=== PATIENT | female | born 1945 | race Caucasian/White ===

== ENCOUNTER 2021-05-02 12:08 | Day surgery (SDC) | payer MEDICARE, SELFPAY ==
--- NOTE | 2021-05-01 18:53 | PM.PREOP ---
Pre-operative Note COVID-19 COVID-19 status: Negative Interval Note History & Physical reviewed/Exam performed by Physician: Yes Changes to H&P: No
--- NOTE | 2021-05-01 18:54 | P.OP_ITS ---
Operative Date/Time/Diagnoses Date of procedure: 05/02/21 Time of procedure: 12:45 Procedure & Clinicians Procedure: Preoperative diagnoses: 1. Right nuclear sclerotic and cortical cataract. 2. Anisometropia 3. Previous left combined cataract and retinal surgery. 4. Epiretinal membrane 5. Dry eye syndrome 6. Hypertension Postoperative diagnoses: 1. Cataract removed by phacoemulsification with placement of posterior chamber intraocular lens. Procedure: Phacoemulsification with posterior chamber intraocular lens implant Surgeon: Slime Nguyen MD Complications: None Specimen: None Implant: DIBOO+23.5 Blood loss: None Anesthesia: Retrobulbar with monitored standby Description of procedure: Patient presents with a complaint of decreased vision due to cataract which is affecting activities of daily living for driving. The patient wants surgery to improve vision. She has anisometropia following her previous left cataract and retinal surgery and desires a distance target. The patient was taken to the operating room and given IV sedation. A retrobulbar block consisting of 6 cc of 2% xylocaine without epinephrine mixed half and half with 0.5% Marcaine with 1 cc of hyaluronidase added is placed between the medial and lateral 1/3 of the inferior orbital rim. The eye is manually massaged for 30 sec, prepped using Betadine solution, and draped in the usual sterile fashion. Temporal approach was made, a 1 mm side-port incision was made 90? from the proposed clear corneal incision position. Phenylephrine 1.5% mixed with 1% xylocaine 0.2 cc was placed into the anterior chamber. Endocoat followed by Healon was then placed. A 2.6 mm clear incision with a 2.6 mm blade was placed. A 360 degree capsulorrhexis style capsulotomy was then performed with a cystitome needle on a Healon. Hydrodelineation and hydrodissection were per formed. The phacoemulsification unit is introduced, and sculpting notice used to groove the central lens. It is then removed in chopping mode. Epi nucleus is removed with epinuclear mode and irrigation aspiration was used to remove the peripheral cortex. The posterior capsule is polished. The intraocular lens is selected, inspected, power confirmed, and placed in the posterior chamber. The wound was stromally hydrated and tested for leaks, there was none and it was left sutureless. Vigamox 0.1 cc was placed into the anterior chamber. Kenalog 0.2 cc was placed in the superior subconjunctival space. A drop of antibiotic and was placed and the eye was patched and shielded. The patient was stable and returned to the recovery room in excellent condition. Dictated by: Slime Nguyen MD Copy to: [facility] Same procedure as scheduled: Yes
[2021-05-02] MEDS: PROPARACAINE 0.5% OPHTH SOL 2 DROPS EYE-OP (12:23)
[2021-05-02] MEDS: CATARACT EYE COMPOUND (10 DROPS/SYRINGE) 3 DROPS EYE-OP (12:24)
[2021-05-02 12:35] VITALS: BP 152/76; PULSE 50; RESP 14; TEMP 36.9; O2SAT 98; BMI 30.1
--- NOTE | 2021-05-02 13:24 | SUR.OPER ---
Supine on eye stretcher, head on extension cradle secured with tape. Arms tucked at sides with blanket. Pillow under knees.
[2021-05-02] MEDS: HYALURONATE SODIUM 30 MG-10 MG/ML SYRINGES 1 BOX INTRAOCULA (14:19)
[2021-05-02] MEDS: MOXIFLOXACIN INJ 4 MG/0.8 ML VIAL 0.5 MG EYE-OP (14:19)
[2021-05-02] MEDS: ERYTHROMYCIN OPHTH 1 GM OINT 1 APPLIC EYE-RIGHT (14:19)
[2021-05-02] MEDS: PHENYLEPHRINE/LIDOCAINE VIAL (OR) 0.2 ML EYE-OP (14:20)
[2021-05-02] MEDS: TRIAMCINOLONE 50 MG/5 ML VIAL INJ (14:20)
[2021-05-02] MEDS: LIDOCAINE 2% 4 ML, BUPIVACAINE 0.5% (PF) 4 ML, HYALURONIDASE 150 UNIT INJ (14:21)
[2021-05-02] MEDS: BALANCED SALT IRRIG SOLN NO.2 500 ML, EPINEPHrine 1 MG IRR (14:21)
[2021-05-02 14:43] VITALS: BP 158/64; PULSE 47; RESP 12; TEMP 36.3; O2SAT 100
== END 2021-05-02 15:06 | disposition home or self-care (01) ==
LOC: OR 12:11
PROVIDERS: Family Provider Family Medicine; PCP Family Medicine; Referring Provider Ophthalmology; Visit Provider Ophthalmology
PROC: (CPT 66984; principal; 2021-05-02 13:15)
DX: H25.811 Combined forms of age-related cataract, right eye (principal); H52.31 Anisometropia; H04.129 Dry eye syndrome of unspecified lacrimal gland; I10 Essential (primary) hypertension
CPT/HCPCS: 66984; J0171; J2704; J3301; J3470

== ENCOUNTER → 2022-10-22 12:55 | Outpatient (CLI) | payer MEDICARE, SELFPAY ==
--- NOTE | 2022-10-22 | DI.NM.S_ITS ---
PROCEDURE: NM EXERCISE TREADMILL NON NUC COMPARISON: None. INDICATIONS: Bradycardia, unspecified Cardiac murmur FINDINGS: The patient exercised for 6 minutes and 6 seconds reaching 82% of maximum predicted heart rate. Double product 25360, suggesting adequate stress test. Above average exercise tolerance (7.0METs, ZAIN -14%). Resting ECG shows non-specific ST-T changes. With exercise, there were mild horizontal ST depressions in the inferior and anterolateral leads. No angina during the study. No ectopy. IMPRESSION: Abnormal study due to mild horizontal ST depressions in the inferior and anterolateral leads during recovery. No angina during the study. Above average exercise tolerance (ZAIN -14%). Recommend exercise stress echo for further evaluation of the ST changes. Dictated by: Mayuri Johnston MD on 10/23/2022 at 13:22 Approved by: Mayuri Johnston MD on 10/23/2022 at 13:25
--- NOTE | 2022-10-22 | DI.ECHO.S_ITS ---
[facility] +---------+ : : [address] : : : : [id number] : : : : Phone: [phone]---------+ Echocardiogram Report + + :Name: MARCO MOSES Study Date: 10/22/2022 Height: 69.5 in: :[facility] ReadingLocation: Weight: 214 lb : : Gender: Female BSA: 2.1 m2 : :: 1945 Age: 76 yrs BP: 172/80 mmHg: :Reason For Study: BRADYCARDIA, CARDIAC MURMUR : :Ordering Physician: TIANA, : :MARGARITA Akbar D.O. Performed By: Mame Gross : :Referring: MARGARITA PEREZ + + Interpretation Summary The ejection fraction is estimated to be 60-65%. Diastolic parameters suggest probable normal left ventricular diastolic function and normal filling pressures. The LVOT velocity is 1.54 m/s. The right ventricle is normal in size and function. No significant valvular abnormalities. Unable to estimate PASP. Procedure: A two-dimensional transthoracic echocardiogram with color flow and Doppler was performed. The study quality was technically adequate. There is no prior echocardiogram noted for this patient. The patient was in sinus bradycardia with heart rates between 50-60 bpm during the exam. Left Ventricle: The left ventricle is normal in size. The LVOT velocity is 1.54 m/s. The ejection fraction is estimated to be 60-65%. Diastolic parameters suggest probable normal left ventricular diastolic function and normal filling pressures. Right Ventricle: The right ventricle is normal in size and function. Atria: The left atrial size is normal. Right atrial size is normal. There is no Doppler evidence for an interatrial shunt. Mitral Valve: The mitral valve leaflets appear borderline thickened, but open well. There is trace mitral regurgitation. Aortic Valve: The aortic valve is trileaflet. The aortic valve opens well. There is no aortic valve stenosis. No aortic regurgitation is present. Tricuspid Valve: The tricuspid valve is normal in structure and function. There is trace tricuspid regurgitation. Pulmonary artery pressures cannot be estimated because of the lack of a measurable TR jet velocity. Pulmonic Valve: The pulmonic valve leaflets are thin and pliable; valve motion is normal. There is no pulmonic valvular regurgitation. Great Vessels: The aortic root is normal size. The dimensions of the ascending aorta are normal. The IVC is of normal diameter and collapses greater than 50% with a sniff. This suggests a low right atrial pressure of 3 mm Hg. Pericardium/ Pleura There is no pericardial effusion. There is no pleural effusion. MMode/2D Measurements & Calculations LVIDd: 4.9 cm LVOT diam: 1.8 cm LVIDs: 3.0 cm Ao root diam: 3.1 cm FS: 38.5 % asc Aorta Diam: 3.7 cm EPSS: 0.69 cm Ao Arch Diam (Prox Trans): 2.6 cm IVSd: 0.97 cm LVPWd: 0.84 cm LV chaudhari. diameter/BSA (cm/m^2): 2.3 LV sys. diameter/BSA (cm/m^2): 1.4 LA A2 area: 20.7 cm2 RA long axis: 4.8 cm LA A4 area: 18.7 cm2 RA area: 14.5 cm2 LA length (vol): 5.5 cm RA vol: 36.9 ml LA vol: 59.7 ml RA : 17.2 ml/m2 LA vol index: 27.9 ml/m2 IVC diam: 2.0 cm RVD1 (basal): 3.4 cm RVD2 (mid): 2.3 cm TAPSE: 2.4 cm Doppler Measurements & Calculations Ao V2 max: 185.3 cm/sec LVOT Max Luan: 153.8 cm/sec Ao V2 mean: 130.2 cm/sec LV V1 max P.5 mmHg Ao max P.8 mmHg LV V1 VTI: 37.8 cm Ao mean P.6 mmHg ROXANNE(I,D): 2.3 cm2 Ao V2 VTI: 40.4 cm ROXANNE(V,D): 2.1 cm2 sev ratio: 0.94 ROXANNE indexed to BSA (cm^2/m^2): 1.1 MV E max luan: 77.6 cm/sec PA V2 max: 114.4 cm/sec MV A max luan: 105.3 cm/sec PA V2 mean: 76.9 cm/sec MV E/A: 0.74 PA mean P.7 mmHg Med Peak E' Luan: 6.4 cm/sec PA pr(Accel): 27.6 mmHg E/E' med: 12.2 Lat Peak E' Luan: 9.2 cm/sec E/E' lat: 8.5 E/e' average: 10.3 MV dec time: 0.30 sec SV(LVOT): 93.5 ml Reading Physician:01:38 PM
== END ==
PROVIDERS: Family Provider Family Medicine; PCP Nurse Practitioner Family; Referring Provider Internal Medicine Cardiovascular Disease; Visit Provider Internal Medicine Cardiovascular Disease
DX: R00.1 Bradycardia, unspecified (principal); R01.1 Cardiac murmur, unspecified; R94.39 Abnormal result of other cardiovascular function study
CPT/HCPCS: 93017; 93306

== ENCOUNTER → 2023-01-28 09:56 | Outpatient (CLI) | payer MEDICARE, SELFPAY ==
--- NOTE | 2023-02-06 10:10 | DI.NM.S_ITS ---
DATE OF SERVICE: PROCEDURE: Pharmacological perfusion study. INDICATIONS: Abnormal exercise stress test, hypertension, hyperlipidemia, sinus bradycardia. RADIOPHARMACEUTICAL: 25.8 millicurie technetium-99m Myoview IV was injected at stress and 11.1 millicurie technetium-99m Myoview IV was injected at rest. CARDIAC STRESS: The patient underwent IV Lexiscan perfusion study as per standard protocol. Baseline rhythm was sinus bradycardia, rate about 52, with some repolarization changes. Baseline blood pressure 164/68 mmHg. During Lexiscan infusion, patient had some nonspecific up to 0.[address] depression and T-wave inversion in inferolateral leads. Peak blood pressure was 184/70 mmHg and maximum heart rate 75 beats per minute. No symptoms. RAW DATA: Breast shadow seen. The patient's weight is 220 pounds. GATED STUDY: Resting LV ejection fraction 74% and stress LV ejection fraction 81%. No obvious wall motion abnormalities. Resting end- diastolic volume 109 mL. TID ratio 1.09, which is within normal limits. Lung/heart ratio 0.26, which is within normal limits. MYOCARDIAL PERFUSION SCAN: Stress supine images revealed moderate size, moderate to severely decreased perfusion of anterior wall extending into the anteroapex as well as anterior septum. Resting supine images revealed a small to moderate size, moderately decreased perfusion of distal anteroseptum, as well as mid anterior wall. Stress prone images revealed normal myocardial perfusion. CONCLUSION: I will call this study a normal myocardial perfusion study with evidence of breast tissue attenuation artifact, which got completely resolved during stress prone images. Stress prone images revealed normal myocardial perfusion. Preserved left ventricular function. Nonspecific EKG changes. Overall, low-risk myocardial perfusion scan. Diamond Vang - GARETH/natalie/jd doc#: [id number]/job#: [id number] dd: 01/28/2023 17:01:00 dt: 01/28/2023 23:59:00 DICTATING MD/COPIES TO: Duke Florez MD COPIES MNE: CRISTOBAL;
== END ==
PROVIDERS: Family Provider Family Medicine; PCP Nurse Practitioner Family; Referring Provider Internal Medicine Cardiovascular Disease; Visit Provider Internal Medicine Cardiovascular Disease
DX: R94.31 Abnormal electrocardiogram [ECG] [EKG] (principal); I10 Essential (primary) hypertension; E78.5 Hyperlipidemia, unspecified; R00.1 Bradycardia, unspecified; Z01.89 Encounter for other specified special examinations
CPT/HCPCS: 78452; 93017; A9502; J2785

== ENCOUNTER → 2025-01-27 15:56 | Outpatient (CLI) | payer MEDICARE, OTHER, SELFPAY ==
--- NOTE | 2025-01-27 15:59 | DI.ECHO.S_ITS ---
[facility]---------+ [facility] : : [address] : [address] [address] : : [id number] : : Phone: [phone] Echocardiogram Report + + :Name: MARCO MOSES Study Date: 01/27/2025 Height: 69 in : :[facility] ReadingLocation: Weight: 209 lb : : Gender: Female BSA: 2.1 m2 : :: 1945 Age: 79 yrs BP: 210/96 mmHg: :Reason For Study: SICK SINUS SYNDROME : :Ordering Physician: TIANA, : :MARGARITA Akbar Performed By: Juan Alvarenga : :Referring: MARGARITA PEREZ : + + Interpretation Summary The ejection fraction is estimated to be 60-65%. Diastolic function could not be accurately assessed due to paced rhythm. The left atrium is mildly dilated. The right ventricle is normal in size and function. No significant valvular abnormalities. Pulmonary artery pressures cannot be estimated because of the lack of a measurable TR jet velocity but the IVC suggests a CVP of around 3 mmHg. Procedure: A two-dimensional transthoracic echocardiogram with color flow and Doppler was performed. The study quality was technically good. Comparison is made with the echocardiogram of 10/22/2022. The patient has a paced rhythm. Left Ventricle: The left ventricle is normal in size. Left ventricular wall thickness is mildly increased. There is no ventricular septal defect visualized. The ejection fraction is estimated to be 60-65%. There are no focal wall motion abnormalities. Diastolic function could not be accurately assessed due to paced rhythm. Right Ventricle: The right ventricle is normal in size and function. There is a pacemaker lead in the right ventricle. Atria: The left atrium is mildly dilated. Right atrial size is normal. There is no Doppler evidence for an interatrial shunt. Mitral Valve: There is mild mitral annular calcification. The mitral valve leaflets are mildly calcified. There is trace mitral regurgitation. Aortic Valve: The aortic valve is trileaflet. The aortic valve is slightly calcified. The aortic valve opens well. There is no aortic valve stenosis. No aortic regurgitation is present. Tricuspid Valve: The tricuspid valve leaflets are thin and pliable. There is trace tricuspid regurgitation. Pulmonary artery pressures cannot be estimated because of the lack of a measurable TR jet velocity but the IVC suggests a CVP of around 3 mmHg. Pulmonic Valve: The pulmonic valve is not well visualized. There is no pulmonic valvular regurgitation. Great Vessels: The aortic root is normal size. The ascending aorta is mildly enlarged. The pulmonary artery is normal size. The IVC is of normal diameter and collapses greater than 50% with a sniff. This suggests a low right atrial pressure of 3 mm Hg. Pericardium/ Pleura There is no pericardial effusion. There is no pleural effusion. MMode/2D Measurements & Calculations LVIDd: 6.0 cm LVOT diam: 2.0 cm LVIDs: 4.0 cm Ao root diam: 3.4 cm FS: 32.4 % asc Aorta Diam: 3.7 cm EPSS: 0.83 cm IVSd: 1.3 cm LVPWd: 1.1 cm LV chaudhari. diameter/BSA (cm/m^2): 2.8 LV sys. diameter/BSA (cm/m^2): 1.9 LA A2 area: 22.1 cm2 RA long axis: 5.2 cm LA A4 area: 23.7 cm2 RA area: 15.5 cm2 LA length (vol): 6.4 cm RA vol: 39.0 ml LA vol: 69.7 ml RA : 18.5 ml/m2 LA vol index: 33.1 ml/m2 IVC diam: 1.9 cm RVD1 (basal): 3.8 cm RVD2 (mid): 3.0 cm TAPSE: 2.1 cm Doppler Measurements & Calculations Ao V2 max: 171.5 cm/sec LVOT Max Luan: 124.0 cm/sec Ao V2 mean: 109.1 cm/sec LV V1 max P.2 mmHg Ao max P.8 mmHg LV V1 VTI: 27.3 cm Ao mean P.6 mmHg ROXANNE(I,D): 2.3 cm2 Ao V2 VTI: 37.0 cm ROXANNE(V,D): 2.2 cm2 sev ratio: 0.74 ROXANNE indexed to BSA (cm^2/m^2): 1.1 MV E max luan: 65.3 cm/sec TR max luan: 221.9 cm/sec MV A max luan: 96.8 cm/sec TR max P.7 mmHg MV E/A: 0.67 PA V2 max: 129.9 cm/sec Med Peak E' Luan: 5.1 cm/sec PA V2 mean: 93.0 cm/sec E/E' med: 12.7 PA mean P.7 mmHg Lat Peak E' Luan: 6.3 cm/sec PA pr(Accel): 32.8 mmHg E/E' lat: 10.3 E/e' average: 11.5 MV dec time: 0.27 sec SV(LVOT): 83.7 ml Reading Physician:03:58 PM
== END ==
PROVIDERS: Family Provider Family Medicine; PCP Nurse Practitioner Family; Referring Provider Internal Medicine Cardiovascular Disease; Visit Provider Internal Medicine Cardiovascular Disease
DX: I49.5 Sick sinus syndrome (principal); I34.81 Nonrheumatic mitral (valve) annulus calcification; I77.89 Other specified disorders of arteries and arterioles
CPT/HCPCS: 93306

== ENCOUNTER → 2025-05-26 11:37 | Outpatient (CLI) | payer MEDICARE, OTHER, SELFPAY ==
--- NOTE | 2025-05-26 11:40 | DI.US.S_ITS ---
PROCEDURE: US PERIPH VENOUS LOW EXTREM LT
== END ==
LOC: US 11:38
PROVIDERS: Family Provider Family Medicine; PCP Physician Assistant; Referring Provider Internal Medicine Cardiovascular Disease; Visit Provider Internal Medicine Cardiovascular Disease
DX: M79.89 Other specified soft tissue disorders (principal)
CPT/HCPCS: 93971